=== PATIENT | male | born 1955 | race Caucasian/White ===

== ENCOUNTER 2016-08-20 08:27 | Day surgery (SDC) | payer OTHER ==
[~2016-08-20] VITALS: Ht 195.6 cm; Wt 95.2 kg
[~2016-08-20 08:27] MED LIST: 0.9% Sodium Chloride 1,000 ML IV SCH; AMIO200T PO; APIX5TAB PO; ATOR20TA65 PO; CLOP75TA28 PO; LISI30TA5 PO; Lactated Ringer's 1,000 ML IV ONE; METO25TA6 PO; Sodium Chloride LOK Flush 10 mL Syringe IV PRN; fentaNYL-PF 50 mCg/mL 2 mL Inj IVPUSH PRN
[2016-08-20] MEDS ORDERED: Propofol 10,000 mCg/mL 20 mL Inj ONE (08:28)
[2016-08-20] MEDS ORDERED: Lidocaine PF 1% 30 mL Inj ONE (08:28)
[2016-08-20 08:38] VITALS: BP 136/103; PULSE 60; RESP 16; O2SAT 98
[2016-08-20] MEDS ORDERED: MetoCLOpramide 5 mg/mL 2 mL Inj IVPUSH PRN (08:55)
[2016-08-20] MEDS ORDERED: Ondansetron 2 mg/mL 2 mL Inj IVPUSH PRN (08:55)
[2016-08-20] MEDS ORDERED: Lactated Ringer's 1,000 ML IV SCH (08:55)
[2016-08-20] MEDS ORDERED: Atropine 0.4 mg/mL Inj IVPUSH PRN (08:55)
--- NOTE | 2016-08-20 08:55 | PCM.HPANE ---
Patient Data Date of Service: Aug 20, 2016 Surgeon Admitting Provider: Attending Provider:Shayy Flannery MD Primary Care Physician:Francois Cleveland DO Other Provider: Reason for Visit Personal History Of Colon Polyps Ht/WT & BMI Height (Feet): 6 Height (Inches): 5 Weight (Kilograms): 95.25 Body Mass Index 24.00 Allergies Coded Allergies: No Known Drug Allergies (Verified Allergy, Unknown, 05/27/16) Past Anesthesia History Anesthesia History: Denies:: Anesthesia Reactions, Fam Anesthesia Reaction, Fam Malignant Hypertherm, Malignant Hyperthermia Diabetes History Hx Diabetes?: No MRSA MRSA: No Medications Blood Thinner: Plavix (last dose 1 week ago) Last Dose Blood Thinner: Aug 13, 2016 Date Beta Jessica Taken: Aug 20, 2016 Time Beta Jessica Taken: 0700 Reported Medications Apixaban (Eliquis)5 Mg Tablet5 Mg PO BID 05/26/16 Metoprolol Tartrate 25 Mg [id number] Mg PO BID 30 Days Ref 0 01/19/16 Lisinopril 30 Mg [id number] Mg PO BID 30 Days Ref 0 01/19/16 Clopidogrel 75 Mg [id number] Mg PO DAILY Ref 0 01/19/16 Atorvastatin Calcium 20 Mg [id number] Mg PO DAILY Ref 0 01/19/16 Amiodarone 200 Mg [id number] Mg PO DAILY Ref 0 01/19/16 History History of ENT Problems?: No Hx of Heart Problems?: Yes Cardiovascular History: Positive for:: Atrial Fibrillation Cardiac Surgery (heart cath, stents, ICD) Chest Pain Hypertension Irregular Heartbeat Pacemaker Denies:: Congestive Heart Failure Edema Heart Murmur Thrombophlebitis Hx of Respiratory Problem?: No Respiratory History: Positive for:: Pneumonia Denies:: Asthma COPD Chest Surgery Dyspnea Emphysema Hemoptysis Tuberculosis Hx Neurologic Problems?: No Neurological History: Denies:: CVA Hx of GI Problems?: Yes Hx of Problems?: No Male Hx: Denies:: Prostate Problems Scrotal Mass Testicular Surgery Hx Musculoskeletal Problems?: No Hx of Psycho/Social Problems?: No Hx Surgeries?: Yes (PACER, CARDIAC STENTS) Hx Any Other Health Problems?: No Other History: Positive for:: Hospitalization ([place]) Denies:: Cancer Thyroid Disease History Blood Transfusions: Denies:: Blood Transfuse Reaction Blood Transfusions Hx Diabetes: No Hx Alcohol Use: Yes (DAILY)Hx Substance Use: No Smoking Status: Former Smoker Have You Smoked inLast 12 mo: Yes Stop/Bang Treated for Sleep Apnea?: No Do You Have a CPAP Machine?: No S-Snoring: Do You Snore Loudly: No T-Tired: feel tired, fatigued: No O-Obsered: Observed not breath: No P-Blood Pressure: treated: Yes B- Body Mass Index > 35 kg/m2: No A- Age over 50: Yes N- Neck Large Circumference: No G- Gender Male: Yes JUSTIN Total Score: 3 Risk Assessment Category Category 1A: Patient has history of documented sleep apnea, and HAS NOT received any narcotic, sedative or anesthesia administration during this stay. Category 1B: Patient has history of documented sleep apnea, and HAS received any narcotic , sedative or anesthesia administration during this stay Category 2: Patient has SUSPECTED Obstructive Sleep Apnea, and HAS received any narcotic , sedative or anesthesia administration during this stay. Category 3: Patient has SUSPECTED Obstructive Sleep Apnea and HAS NOT received narcotic, sedative or anesthesia administration during this stay. Category 4: Outpatient in Procedural Areas with known sleep apnea or who screen positive for High Risk via the STOP/BANG questionnaire. Exam Exam Vital Signs Vital Signs Date Time Temp Pulse Resp B/P Pulse Ox O2 Delivery O2 Flow Rate FiO2 08/20/16 08:38 60 16 136/103 98 Room Air General Appearance: Alert, Oriented X3 HEENT/AIRWAY: MP 3, Neck Movement (Full, gentile) Lungs: Clear to Auscultation, Normal Air Movement Heart: Regular Rate/Rhythm, Normal S1, Normal S2 Meds/Labs/Diagnostics Admission Meds Current Medications Lactated Ringer's (Lr) 1,000 ml @ 10 mls/hr Q24H ONCE IV Last administered on 08/20/16t 08:44; Start 08/20/16 at 06:00; Stop 08/21/16 at 05:59 Diagnositcs Echo 11/2015 reviewed. Cardiology recs for ICD reviewed Plan Impression Patient chart reviewed, patient interviewed and anesthestic plan with risks, benefits, and alternatives discussed, and informed consent obtained. NPO Status: clears > 2 hours ago ASA Physical Status: ASA3 Severe Disease Anesthetic Plan: MAC Bene/Risks/Altern/Consents: Yes HP Complete Prior to Induction: Yes Carlos Guardado MD Aug 20, 2016 08:55
[2016-08-20 09:52] VITALS: BP 143/98; PULSE 60; RESP 14; O2SAT 93
[2016-08-20 10:02] VITALS: BP 128/95; PULSE 59; RESP 16; O2SAT 97
[2016-08-20 10:11] VITALS: BP 129/98; PULSE 60; RESP 16; O2SAT 97
--- NOTE | 2016-08-20 10:11 | PCM.ANEP1 ---
Post Anesthesia Phase 1 PACU Phase 1 Assessment Date of Service: Aug 20, 2016 Vital Signs Vital Signs Date Time Temp Pulse Resp B/P Pulse Ox O2 Delivery O2 Flow Rate FiO2 08/20/16 10:02 59 16 128/95 97 Room Air 08/20/16 09:52 35.8 60 14 143/98 93 Room Air 08/20/16 08:38 60 16 136/103 98 Room Air Anesthetic Administered: MAC Level of Alertness: Sleeping, hard to arouse DIAL's with Equal Strength: Yes Pain: No Nausea or Vomiting: No Oxygen Delivery: Room Air Lungs: Normal Air Movement Carlos Guardado MD Aug 20, 2016 10:11
--- NOTE | 2016-08-20 10:33 | PCM.ANEP2 ---
Post Anesthesia Evaluation ASA/CMS Post Anesthesia Date of Service: Aug 20, 2016 VS in Patient's Normal Range?: Yes Resp Stable; Airway Patent?: Yes CV Function & Hydration Stable: Yes Mental Status Recovered?: Yes Pain control Satisfactory?: Yes N/V Control Satisfactory?: Yes Carlos Guardado MD Aug 20, 2016 10:33
--- NOTE | 2016-08-23 10:34 | ENDO ---
[address] [address] ENDOSCOPY PROCEDURE PATIENT: PAU FLEMING : 1955 MR#: [id number] ADMIT: 08/20/2016 JOB ID: [id number] DATE: 08/20/2016 PROCEDURE: Colonoscopy. INDICATION: The patient with a personal history of colon polyps. The patient's ASA classification, Mallampati score and medications as per Dr. Jose Guardado's anesthesia note. INSTRUMENT USED: PCF H 180 AL. PREPARATION QUALITY: Was fair. PROCEDURE DETAILS: After informed consent was obtained, the patient was brought into the GI suite, where he was placed on oxygen via nasal cannula and monitored with continuous pulse oximeter, telemetry and blood pressure monitoring. A time-out was performed. Then, he was placed in the left lateral decubitus position and medications were administered for sedation. Digital rectal examination was performed with palpation of the prostate which was unremarkable. The colonoscope was then inserted into the rectum and advanced under direct visualization to the cecum, which was identified by the presence of the ileocecal valve and appendiceal orifice. Once it the cecum was reached, the colonoscope was withdrawn back in the rectum, and mucosa and lumen were examined. In the rectum, retroflexion was performed. Following retroflexion, remaining air in the rectum was suctioned, and procedure was completed. FINDINGS: 1. In the transverse colon, there were four polyps ranging in size from 4 mm-6 mm. Polyps were all removed using a cold snare. 2. In the descending colon, there was a diminutive polyp that was removed with cold biopsy forceps. 3. Scattered diverticula were seen throughout the left side of the colon. IMPRESSION: 1. Four transverse colon polyps. 2. Descending colon polyp. 3. Left-sided diverticulosis. RECOMMENDATIONS: 1. Restart Eliquis in 48 hours. 2. Fiber rich diet. 3. Repeat colonoscopy in three years. COMPLICATIONS: None. ESTIMATED BLOOD LOSS: Less than 5 mL.
--- NOTE | 2016-08-24 15:13 | PATH ---
SURGICAL PATHOLOGY Attending Physician:Alon Vallejo CASE STATUS: Signed Out PATIENT NAME: PAU FLEMING PID: [id number] : 1955 DATE COLLECTED:08/20/2016 17:07 SPECIMEN: 1: Colon, Biopsy 2: Colon, Biopsy CLINICAL HISTORY: POLYP 1). TRANSVERSE COLON POLYP X4 2). DESCENDING COLON POLYP FINAL DIAGNOSIS: 1.TRANSVERSE COLON POLYPS: TUBULAR ADENOMA INVOLVING THREE BIOPSY FRAGMENTS. HYPERPLASTIC POLYP INVOLVING SINGLE BIOPSY FRAGMENT. 2.DESCENDING COLON POLYP: CHANGES CONSISTENT WITH HYPERPLASTIC POLYP. ICD10 CODE D12.3 GROSS DESCRIPTION: The specimen is received in two formalin filled containers labeled with the patient's name. 1). The specimen is sublabeled "transverse colon polyp" and consists of 4 portions of tissue which aggregate to 0.4 x 0.4 x 0.3 CM. The specimen is entirely submitted in cassette 1A. 2). The specimen is sublabeled "descending colon polyp" and consists of a 0.4 x 0.2 x 0.2 CM portion of tissue which is entirely submitted in cassette 2A. 08/20/2016 [facility] MICRO DESCRIPTION: See diagnosis. ICD-9 CODES: CPT CODES: 1: 36117 2: 22927 Electronically Signed Out Stephane Olmstead MD [facility] [address], [place] [address] Technical component performed at [facility], [facility] [address], [place], [address]
== END 2016-08-20 23:59 | disposition home or self-care (01) ==
LOC: END 08:27
PROVIDERS: ATTEND Internal Medicine Gastroenterology
DX: D12.3 Benign neoplasm of transverse colon (principal); K63.5 Polyp of colon; K57.30 Diverticulosis of large intestine without perforation or abscess without bleeding; I10 Essential (primary) hypertension; Z86.010 Personal history of colon polyps; Z79.899 Other long term (current) drug therapy
CPT/HCPCS: 45380; 45385; J7120